=== PATIENT | female | born 1945 | race Two or more races ===

== ENCOUNTER 2019-07-08 10:29 | Outpatient (CLI) | payer OTHER | END 2019-07-08 10:47 | disposition home or self-care (01) | LOC: RAD 10:29 | DX: S82.124A Nondisplaced fracture of lateral condyle of right tibia, initial encounter for closed fracture (principal) ==

== ENCOUNTER 2019-12-31 07:47 | Day surgery (SDC) | payer OTHER | END 2019-12-31 15:24 | disposition home or self-care (01) | LOC: CIR.AMB 07:47 | PROVIDERS: ATTEND Orthopaedic Surgery | DX: M23.321 Other meniscus derangements, posterior horn of medial meniscus, right knee (principal); M23.351 Other meniscus derangements, posterior horn of lateral meniscus, right knee; M12.261 Villonodular synovitis (pigmented), right knee; M22.41 Chondromalacia patellae, right knee; Z20.828 Contact with and (suspected) exposure to other viral communicable diseases ==

== ENCOUNTER 2024-11-09 10:22 | Outpatient (CLI) | payer OTHER | END 2024-11-09 10:31 | disposition home or self-care (01) | LOC: RAD 10:22 | PROVIDERS: ATTEND Family Medicine | DX: M54.50 Low back pain, unspecified (principal) ==